=== PATIENT | female | born 1990 | race Caucasian/White ===

== ENCOUNTER 2019-04-03 18:15 | Emergency (ER) | payer OTHER ==
[2019-04-03] MEDS ORDERED: ACTIVATED CHARCOAL 25 GM BOTTLE PO ONE (18:40)
[2019-04-03] MEDS ORDERED: ACTIVATED CHARCOAL 25 GM BOTTLE ONE (18:42)
[2019-04-03 18:47] LABS: ABSOLUTE EOSINOPHILS # (AUTO) 0.2 10^3/uL (0.0-0.6); ABSOLUTE MONOCYTES (AUTO) 0.6 10^3/uL (0.1-1.4); ABSOLUTE NEUT (AUTO) 2.7 10^3/uL (1.7-8.2); BASOPHILS % (AUTO) 0.7 % (0-2); EOSINOPHILS % (AUTO) 3.3 % (0-6); HEMATOCRIT 42.2 % (36.0-47.0); HEMOGLOBIN 14.1 g/dL (12.0-15.5); LYMPHOCYTES % (AUTO) 35.9 % (13-45); MEAN CORPUSCULAR HEMOGLOBIN 29.8 pg (27.0-33.4); MEAN CORPUSCULAR HGB CONC 33.4 g/dL (32.0-36.0); MEAN CORPUSCULAR VOLUME 89 fl (80-97); MONOCYTES % (AUTO) 10.2 % (3-13); PLATELET COUNT 246 10^3/uL (150-450); RED BLOOD COUNT 4.73 10^6/uL (3.72-5.28); RED CELL DISTRIBUTION WIDTH 14.2 % (11.5-14.0); SEGMENTED NEUTROPHILS % (AUTO) 49.9 % (42-78); TOTAL CELLS COUNTED % (AUTO) 100 %; WHITE BLOOD COUNT 5.5 10^3/uL (4.0-10.5)
[2019-04-03 19:37] LABS: ACETAMINOPHEN 11 ug/mL (10-30); ALBUMIN 4.5 g/dL (3.5-5.0); ALKALINE PHOSPHATASE 64 U/L (38-126); ANION GAP 13 (5-19); ASPARTATE AMINO TRANSFERASE 30 U/L (14-36); BILIRUBIN,DIRECT 0.3 mg/dL (0.0-0.4); BILIRUBIN,TOTAL 0.3 mg/dL (0.2-1.3); BLOOD UREA NITROGEN 15 mg/dL (7-20); CALCIUM 9.5 mg/dL (8.4-10.2); CARBON DIOXIDE 25 mmol/L (22-30); CHLORIDE 105 mmol/L (98-107); GLUCOSE 114 mg/dL (75-110); POTASSIUM 4.1 mmol/L (3.6-5.0); TOTAL PROTEIN 7.3 g/dL (6.3-8.2)
[2019-04-03 19:39] LABS: ALCOHOL < 10 mg/dL (NONE DETECTED)
--- NOTE | 2019-04-03 19:59 | ER Document Report ---
ED General - General Mode of Arrival: Medic Information source: Patient <MARILOUROBERT Alec - Last Filed: 04/04/19 02:18> <MIGUEL SAMUELSRICIA - Last Filed: 04/04/19 13:52> - General Chief Complaint: Overdose Stated Complaint: POSSIBLE OVERDOSE Time Seen by Provider: 04/03/19 19:13 Notes: Otherwise healthy 28-year-old female presents emergency department after an intentional overdose. Patient reports she overdosed on oxycodone and "blue sleeping pills". She states that she was attempting to kill herself. She reports multiple reasons for this including arguing lately with her . She reports that her only regret now is that she told somebody that she had overdosed. She denies history of suicidal ideations in the past. (ROBERT ZAMARRIPA) - Related Data Allergies/Adverse Reactions: No Known Allergies Allergy (Unverified 04/03/19 18:55) Past Medical History - General Information source: Patient - Social History Smoking Status: Never Smoker Frequency of alcohol use: None Drug Abuse: None Family History: Reviewed & Not Pertinent Psychiatric Medical History: Reports: Hx Anxiety, Hx Depression Surgical Hx: Negative - Immunizations Immunizations up to date: Yes <ROBERT ZAMARRIPA - Last Filed: 04/04/19 02:18> Review of Systems - Review of Systems Constitutional: No symptoms reported EENT: No symptoms reported Cardiovascular: No symptoms reported Respiratory: No symptoms reported Gastrointestinal: No symptoms reported Genitourinary: No symptoms reported Female Genitourinary: No symptoms reported Musculoskeletal: No symptoms reported Skin: No symptoms reported Hematologic/Lymphatic: No symptoms reported Neurological/Psychological: See HPI <ROBERT ZAMARRIPA - Last Filed: 04/04/19 02:18> Physical Exam <ROBERT ZAMARRIPA - Last Filed: 04/04/19 02:18> - Vital signs Vitals: Resp Pulse Ox 20 97 04/03/19 18:54 04/03/19 18:54 - Notes Notes: PHYSICAL EXAMINATION: GENERAL: Well-appearing, well-nourished and in no acute distress. HEAD: Atraumatic, normocephalic. EYES: Pupils equal round and reactive to light, extraocular movements intact, conjunctiva are normal. ENT: Nares patent, oropharynx clear without exudates. Moist mucous membranes. NECK: Normal range of motion, supple without lymphadenopathy LUNGS: Breath sounds clear to auscultation bilaterally and equal. No wheezes rales or rhonchi. HEART: Regular rate and rhythm without murmurs ABDOMEN: Soft, nontender, nondistended abdomen. No guarding, no rebound. No masses appreciated. Female : deferred Musculoskeletal: Normal range of motion, no pitting or edema. No cyanosis. NEUROLOGICAL: Cranial nerves grossly intact. Normal speech, normal gait. Normal sensory, motor exams PSYCH: Drowsy. SKIN: Warm, Dry, normal turgor, no rashes or lesions noted. (ROBERT ZAMARRIPA) Course - Laboratory Result Diagrams: 04/03/19 18:30 04/03/19 18:30 <ROBERT ZAMARRIPA - Last Filed: 04/04/19 02:18> - Laboratory Result Diagrams: 04/03/19 18:30 04/03/19 18:30 <CHEYANNE SAMUELS - Last Filed: 04/04/19 13:52> - Re-evaluation Re-evalutation: Patient appears well, nontoxic, vital signs are within normal limits. Patient is sleepy but easily arousable and she is alert and oriented. She did have an intentional suicide attempt. She be placed on IVC paperwork at this time. She will be medically cleared after cleared by poison control. Initial and repeat labs were unremarkable. EKG showed a sinus rhythm, normal axis, no ST segment elevations or depressions. Repeat acetaminophen and salicylate levels were negative. These were drawn at least 4 hours after ingestion time. Patient being medically cleared at this time. (ROBERT ZAMARRIPA) - Vital Signs Vital signs: Temp Pulse Resp BP Pulse Ox 97.8 F 75 18 114/64 100 04/04/19 13:00 04/04/19 13:00 04/04/19 13:00 04/04/19 13:00 04/04/19 13:00 - Laboratory Laboratory results interpreted by nc: 04/03/19 04/03/19 04/03/19 18:30 18:30 22:10 RDW 14.2 H Glucose 114 H Urine Ketones TRACE H Salicylates 1.0 L Acetaminophen 04/03/19 22:20 RDW Glucose Urine Ketones Salicylates < 1.0 L Acetaminophen < 10 L Discharge <ROBERT ZAMARRIPA - Last Filed: 04/04/19 02:18> <CHEYANNE SAMUELS - Last Filed: 04/04/19 13:52> - Discharge Clinical Impression: Intentional overdose, Suicide attempt Condition: Stable Disposition: PSYCH HOSP/UNIT
[2019-04-03 22:35] LABS: APPEARANCE,URINE CLEAR; BILIRUBIN,URINE NEGATIVE (NEGATIVE); COLOR,URINE YELLOW; GLUCOSE, URINE NEGATIVE (NEGATIVE); KETONES,URINE TRACE mg/dL (NEGATIVE); LEUKOCYTE ESTERASE,URINE NEGATIVE (NEGATIVE); NITRITE,URINE NEGATIVE (NEGATIVE); PROTEIN,URINE NEGATIVE (NEGATIVE); URINE SPECIFIC GRAVITY 1.031; UROBILINOGEN,URINE NEGATIVE mg/dL (<2.0)
[2019-04-03 22:46] LABS: ACETAMINOPHEN < 10 ug/mL (10-30); SALICYLATE < 1.0 mg/dL (2.0-20.0)
[2019-04-03 22:52] LABS: URINE AMPHETAMINES SCREEN NEGATIVE; URINE BARBITURATES SCREEN NEGATIVE; URINE BENZODIAZEPINES SCREEN NEGATIVE; URINE COCAINE SCREEN NEGATIVE; URINE MARIJUANA (THC) SCREEN NEGATIVE; URINE METHADONE SCREEN NEGATIVE; URINE PHENCYCLIDINE SCREEN NEGATIVE
--- NOTE | 2019-04-04 07:38 | EKG REPORT ---
SEVERITY:- BORDERLINE ECG - SINUS RHYTHM BORDERLINE T ABNORMALITIES, INFERIOR LEADS : Confirmed by: Cameron Steven MD 04-Apr-2019 07:38:24
--- NOTE | 2019-04-04 11:08 | ER Document Report ---
Doctor's Note Notes: 04/04/19 11:06 28-year-old female brought in yesterday for overdose, suicide attempt. Patient reports she has had suicidal ideations in the past but has never attempted suicide. Patient reports she is depressed. Discloses that she is unable to get . Patient denies other symptoms such as fever vomiting diarrhea. Behavioral health has interviewed patient suggested inpatient placement. They are looking for placement now. Patient reports she wants to go home because she has a new job starting Monday. She was instructed on the importance of obtaining treatment because she did try to commit suicide. She verbalized understanding is calm and agrees to stay for now. PHYSICAL EXAMINATION: GENERAL: Well-appearing and in no acute distress HEAD: Atraumatic, normocephalic. EYES: Pupils equal round extraocular movements intact, sclera anicteric, conjunctiva are normal. ENT: nares patent, oropharynx clear without exudates. Moist mucous membranes. NECK: Normal range of motion, supple without lymphadenopathy LUNGS: CTAB and equal. No wheezes rales or rhonchi. HEART: Regular rate and rhythm without murmurs ABDOMEN: Soft, no tenderness. No guarding, no rebound EXTREMITIES: Normal range of motion, NEUROLOGICAL: Cranial nerves grossly intact. calm PSYCH: Normal mood, normal affect. SKIN: Warm, Dry, normal turgor 04/04/19 13:50 Patient discharged to [facility] without incident.
[2019-04-04 11:10] VITALS: BP 114/64
== END 2019-04-04 13:00 ==
LOC: ER 18:15
DX: T40.2X2A Poisoning by other opioids, intentional self-harm, initial encounter (principal); X58.XXXA Exposure to other specified factors, initial encounter
CPT/HCPCS: 93005; 99284; 36415; 80307 ×4; 85025; 80053; 81001; 93010; J3490

== ENCOUNTER 2020-03-26 14:56 | Emergency (ER) | payer OTHER ==
[2020-03-26 15:07] VITALS: BP 133/64
--- NOTE | 2020-03-26 15:59 | ER Document Report ---
ED Medical Screen (RME) - General Chief Complaint: Abdominal Cramping Stated Complaint: ABDOMINAL CRAMPING Time Seen by Provider: 03/26/20 15:55 Mode of Arrival: Ambulatory Information source: Patient Notes: 29-year-old female presents to ED for complaint of abdominal pain. She states she is about 5 weeks . She is having a 1 para 0. She states she no longer is nauseated and no longer having breast tenderness. She is not having any vaginal bleeding. She has had a positive test. We will get blood urine and transvaginal ultrasound. She does have history of polycystic ovarian syndrome she has had a laparoscopic surgery to evaluate her female organs before . I have greeted and performed a rapid initial assessment of this patient. A comprehensive ED assessment and evaluation of the patient, analysis of test results and completion of medical decision making process will be conducted by an additional ED providers. TRAVEL OUTSIDE OF THE [place] IN LAST 30 DAYS: No - Related Data Allergies/Adverse Reactions: No Known Allergies Allergy (Unverified 04/03/19 18:55) Past Medical History Psychiatric Medical History: Reports: Hx Anxiety, Hx Depression - Immunizations Immunizations up to date: Yes Physical Exam - Vital signs Vitals: Temp Pulse Resp BP Pulse Ox 98.7 F 95 16 133/64 H 98 03/26/20 15:04 03/26/20 15:04 03/26/20 15:04 03/26/20 15:04 03/26/20 15:04 Course - Vital Signs Vital signs: Temp Pulse Resp BP Pulse Ox 98.7 F 95 16 133/64 H 98 03/26/20 15:04 03/26/20 15:04 03/26/20 15:04 03/26/20 15:04 03/26/20 15:04
--- NOTE | 2020-03-26 16:57 | RADIOLOGY REPORT (SQ) ---
EXAM DESCRIPTION: U/S OB TRANSVAGINAL W/O DOP IMAGES COMPLETED DATE/TIME: 03/26/2020 4:41 pm REASON FOR STUDY: About 5 weeks cramping COMPARISON: None. TECHNIQUE: Transvaginal static and realtime grayscale images acquired of the pelvis. Additional giuliana cted spectral and color Doppler images recorded. All images stored on PACs. bHCG: Pending. CLINICAL DATES: Unknown. LIMITATIONS: None. FINDINGS: FETUS: Single Living intrauterine . ULTRASOUND EGA: 6 weeks 0 days by gestational sac size. ULTRASOUND SHAMA: 11/19/2020 EFW: Not applicable less than 20 weeks. CRL: pole is not yet seen. FHR: pole is not yet seen. Beats per minute. SURVEY: Too early to assess. AMNIOTIC FLUID: Adequate amount. PLACENTA: Not yet developed due to early gestation. SUBCHORIONIC BLEED: No. SIZE OF BLEED: Not applicable. UTERUS: No masses. No anomalies. CERVICAL LENGTH: 3 cm. Closed. RIGHT ADNEXA: Normal ovary with normal vascular flow. 5 x 4 x 3 cm. No adnexal free fluid. No adnexal masses. LEFT ADNEXA: Normal ovary with normal vascular flow. 4 x 3 x 2 cm. No adnexal free fluid. No adnexal masses. FREE FLUID: None. OTHER: No other significant finding. IMPRESSION: There appears to be a gestation of 6 weeks 0 days by gestational sac size. pole i s not yet seen. Follow-up as clinically indicated. Trimester of : First trimester - 0 to 13 weeks. TECHNICAL DOCUMENTATION: JOB ID: [id number] 2010 [employer]- All Rights Reserved rev-08/18 Reading location - IP/workstation name: [email or web address]
[2020-03-26 16:58] LABS: ABSOLUTE BASOPHILS # (AUTO) 0.1 10^3/uL (0.0-0.2); ABSOLUTE EOSINOPHILS # (AUTO) 0.2 10^3/uL (0.0-0.6); ABSOLUTE LYMPHOCYTES (AUTO) 2.4 10^3/uL (0.5-4.7); ABSOLUTE MONOCYTES (AUTO) 0.8 10^3/uL (0.1-1.4); ABSOLUTE NEUT (AUTO) 7.4 10^3/uL (1.7-8.2); BASOPHILS % (AUTO) 0.9 % (0-2); EOSINOPHILS % (AUTO) 1.6 % (0-6); HEMATOCRIT 39.4 % (36.0-47.0); HEMOGLOBIN 13.7 g/dL (12.0-15.5); LYMPHOCYTES % (AUTO) 22.1 % (13-45); MEAN CORPUSCULAR HGB CONC 34.8 g/dL (32.0-36.0); MEAN CORPUSCULAR VOLUME 86 fl (80-97); MONOCYTES % (AUTO) 7.4 % (3-13); PLATELET COUNT 288 10^3/uL (150-450); RED BLOOD COUNT 4.57 10^6/uL (3.72-5.28); RED CELL DISTRIBUTION WIDTH 14.1 % (11.5-14.0); TOTAL CELLS COUNTED % (AUTO) 100 %; WHITE BLOOD COUNT 10.9 10^3/uL (4.0-10.5)
[2020-03-26 17:10] LABS: APPEARANCE,URINE CLOUDY; BILIRUBIN,URINE NEGATIVE (NEGATIVE); COLOR,URINE YELLOW; GLUCOSE, URINE NEGATIVE (NEGATIVE); KETONES,URINE TRACE mg/dL (NEGATIVE); LEUKOCYTE ESTERASE,URINE TRACE (NEGATIVE); NITRITE,URINE NEGATIVE (NEGATIVE); PROTEIN,URINE NEGATIVE (NEGATIVE); URINE SPECIFIC GRAVITY 1.024; UROBILINOGEN,URINE NEGATIVE mg/dL (<2.0)
[2020-03-26 17:14] LABS: ALBUMIN 4.5 g/dL (3.5-5.0); ALKALINE PHOSPHATASE 74 U/L (38-126); ANION GAP 12 (5-19); ASPARTATE AMINO TRANSFERASE 38 U/L (14-36); BILIRUBIN,DIRECT 0.1 mg/dL (0.0-0.4); BILIRUBIN,TOTAL 0.2 mg/dL (0.2-1.3); BLOOD UREA NITROGEN 10 mg/dL (7-20); CALCIUM 10.2 mg/dL (8.4-10.2); CARBON DIOXIDE 24 mmol/L (22-30); CHLORIDE 101 mmol/L (98-107); GLUCOSE 84 mg/dL (75-110); POTASSIUM 4.4 mmol/L (3.6-5.0); TOTAL PROTEIN 7.6 g/dL (6.3-8.2)
--- NOTE | 2020-03-26 18:40 | ER Document Report ---
ED GI/ - General Chief Complaint: Abdominal Cramping Stated Complaint: ABDOMINAL CRAMPING Time Seen by Provider: 03/26/20 15:55 Primary Care Provider: SUMAN HARRELL DO [Primary Care Provider] - Follow up as needed Mode of Arrival: Ambulatory Information source: Patient Notes: 29-year-old female presents to ED for complaint of abdominal pain. She states she is about 5 weeks . She is having a 1 para 0. She states she no longer is nauseated and no longer having breast tenderness. She is not having any vaginal bleeding. She has had a positive test. Labs urine and ultrasound were completed. The hCG quant was 9878 but there is no pole noted in the gestational sac in the uterus. Patient has been instructed that she needs to repeat the hCG quant in 48 hours and she could call in for results of this test. She has been informed that if the levels are going down that she is not carrying a viable if they go up then she will get repeat levels with her PROTOCOL MANAGER. Constitutional: Negative for fever. HENT: Negative for sore throat. Eyes: Negative for visual changes. Cardiovascular: Negative for chest pain. Respiratory: Negative for shortness of breath. Gastrointestinal: Negative for abdominal pain, vomiting or diarrhea. Genitourinary: Negative for dysuria. Musculoskeletal: Negative for back pain. Skin: Negative for rash. Neurological: Negative for headaches, weakness or numbness. 10 point ROS negative except as marked above and in HPI. VITAL SIGNS: Within normal limits. GENERAL: No acute distress, non-toxic appearance. HEAD: Normal with no signs of head trauma. EYES: PERRLA, EOMI, conjunctiva normal, no discharge. EARS: Hearing grossly intact. NOSE: Normal. THROAT: Oropharynx is normal. NECK: Normal range of motion, no tenderness, supple, no lymphadenopathy, No adenopathy, no JVD. CHEST: Clear breath sounds bilaterally. No wheezes, rales, or rhonchi. CARDIAC: Regular rate and rhythm. S1 and S2, without murmurs, gallops, or rubs. VASCULAR: No Edema. Peripheral pulses normal and equal in all extremities. ABDOMEN: Normal and soft with no tenderness, no masses or pulsatile masses. GASTROINTESTINAL: Bowel sounds normal GENITOURINARY: Positive test at home left pelvic pain ultrasound shows gestational sac with no pole hCG 9878. LYMPATHTIC: No lymphadenopathy noted. MUSCULOSKELETAL: Good range of motion of all major joints. Extremities without clubbing, cyanosis or edema. NEUROLOGICAL: Alert and oriented x 3. No focal sensory or strength deficits. Speech normal. Follows commands appropriately. PSYCHIATRIC: Normal Affect, judgement and mood. SKIN: Normal appearance with no rashes or lesions. TRAVEL OUTSIDE OF THE [place] IN LAST 30 DAYS: No - HPI Patient complains to provider of: Pelvic pain, Onset: Yesterday Timing/Duration: Intermittent Quality of pain: Cramping Severity at maximum: Moderate Pain Level: 2 Location: Pelvis Vaginal bleeding (Compared to normal period): None LMP: February 20 : 1 Para: 0 heart tones (bpm): 0 OB ultrasound done: Yes Associated symptoms: Other - Gestational sac seen no pole seen Exacerbated by: Denies Relieved by: Denies Similar symptoms previously: Yes Recently seen / treated by doctor: No - Related Data Allergies/Adverse Reactions: No Known Allergies Allergy (Unverified 04/03/19 18:55) Past Medical History - General Information source: Patient - Social History Smoking Status: Never Smoker Frequency of alcohol use: None Drug Abuse: None Lives with: Family Family History: Reviewed & Not Pertinent Patient has suicidal ideation: No Patient has homicidal ideation: No - Past Medical History Cardiac Medical History: Reports: None Pulmonary Medical History: Reports: None EENT Medical History: Reports: None Neurological Medical History: Reports: None Endocrine Medical History: Reports: None Renal/ Medical History: Reports: Hx Ovarian Cysts - pcos Malignancy Medical History: Reports: None GI Medical History: Reports: None Musculoskeletal Medical History: Reports Hx Fibromyalgia Skin Medical History: Reports None Psychiatric Medical History: Reports: Hx Anxiety, Hx Depression Traumatic Medical History: Reports: None Infectious Medical History: Reports: None Past Surgical History: Reports: Hx Dilation and Curettage, Hx Gynecologic Surgery - Laparoscopic salpingogram - Immunizations Immunizations up to date: Yes Hx Diphtheria, Pertussis, Tetanus Vaccination: Yes - 2018 Physical Exam - Vital signs Vitals: Temp Pulse Resp BP Pulse Ox 98.7 F 95 16 133/64 H 98 03/26/20 15:04 03/26/20 15:04 03/26/20 15:04 03/26/20 15:04 03/26/20 15:04 Course - Vital Signs Vital signs: Temp Pulse Resp BP Pulse Ox 98.7 F 95 16 133/64 H 98 03/26/20 15:04 03/26/20 15:04 03/26/20 15:04 03/26/20 15:04 03/26/20 15:04 - Laboratory Results Result Diagrams: 03/26/20 16:42 03/26/20 16:42 Laboratory Results Interpreted: 03/26/20 03/26/20 03/26/20 16:42 16:42 16:42 WBC 10.9 H RDW 14.1 H Sodium 136.8 L AST 38 H ALT 73 H Beta HCG, Quant 9878.40 H Urine Ketones TRACE H Ur Leukocyte Esterase TRACE H Urine Ascorbic Acid 40 H Critical Laboratory Results Reviewed: No Critical Results - Radiology Results Critical Radiology Results Reviewed: No Critical Results Discharge - Discharge Clinical Impression: Pelvic pain early Condition: Stable Disposition: HOME, SELF-CARE Additional Instructions: Pelvic Pain in Lower abdominal pain during can have many causes. We look for serious causes such as appendicitis, tubal , miscarriage, placental separation, or urinary tract infection. Less serious causes of pain include corpus luteum cyst (ovarian cyst of ) or stretching of the pelvic tissues by the enlarging uterus. Sometimes the pain comes from the bowels. If no specific cause for the pain is found, we attribute the pain to stretching of the uterine ligaments. This is called "round ligament strain." It is not dangerous. Just rest until the pain goes away. Call us or come back for reexamination if any problems occur, such as: (1) Pain that becomes more severe, steady, or becomes concentrated in one specific area. Also, pain that is more severe with movement or coughing. (2) Vomiting that persists or becomes more frequent. (3) Blood in the vomitus, urine, or bowel movements. Blood in the stool may have a tarry or black appearance. (4) Shaking chills or fever greater than 100 degrees. (5) The abdomen becomes more distended or swollen. (6) Bowel movements cease. (7) Vaginal bleeding. There was no pole noted on your ultrasound. I have discussed this with you . Your hCG which is your hormone is 9878.4. We will get a repeat hCG in 48 hours to determine if your levels are going up or down they should close to double every 48 hours if you are still at this stage in your . When you come in in 48 hours to get your repeat labs drawn let the lab know that I will be on in the emergency room and the phone number is [phone] so that I can discuss your levels with you. I have given you a copy of your labs and ultrasound reports for you to follow-up with PROTOCOL MANAGER. FOLLOW-UP CARE: If you have been referred to a physician for follow-up care, call the physicians office for an appointment as you were instructed or within the next two days. If you experience worsening or a significant change in your symptoms, notify the physician immediately or return to the Emergency Department at any time for re-evaluation. Forms: Follow-Up Laboratory Testing Referrals: SUMAN HARRELL DO [Primary Care Provider] - Follow up as needed
== END 2020-03-26 18:58 | disposition home or self-care (01) ==
LOC: ER 14:56
DX: O26.91 Pregnancy related conditions, unspecified, first trimester (principal); R10.2 Pelvic and perineal pain; Z3A.01 Less than 8 weeks gestation of pregnancy
CPT/HCPCS: 36415; 76817; 80053; 81001; 84702; 85025; 87086; 87088; 87186; 99284

== ENCOUNTER → 2020-03-28 | Outpatient (CLI) | payer OTHER | LOC: OD 09:45 | PROVIDERS: ATTEND Nurse Practitioner Family | DX: R10.2 Pelvic and perineal pain (principal); Z32.00 Encounter for pregnancy test, result unknown | CPT/HCPCS: 36415; 84702 ==